=== PATIENT | female | born 1995 | race Caucasian/White ===

== ENCOUNTER 2018-03-29 19:16 | Outpatient (CLI) | END 2018-03-29 23:47 | disposition home or self-care (01) ==

== ENCOUNTER 2018-03-31 16:53 | Outpatient (CLI) | END 2018-03-31 19:20 | disposition home or self-care (01) ==

== ENCOUNTER 2018-04-05 15:54 | Inpatient (IN) | END 2018-04-08 19:00 | disposition home or self-care (01) | DRG 775 ==